=== PATIENT | male | born 2000 | race Caucasian/White ===

== ENCOUNTER 2021-02-01 14:59 | Emergency (ER) | payer BC, OTHER, SELFPAY ==
[2021-02-01] MEDS ORDERED: Ketamine 50 MG/ML (10ML VIAL) ONE (15:37)
== END 2021-02-01 17:12 | disposition home or self-care (01) ==
LOC: BURERS 14:59
DX: S43.004A Unspecified dislocation of right shoulder joint, initial encounter (principal); V93.4 Struck by falling object on board watercraft
CPT/HCPCS: 23650; 99152